=== PATIENT | female | born 1955 | race American Indian/Alaskan Native ===

== ENCOUNTER 2017-01-08 16:11 | Emergency (ER) | payer MEDICAID ==
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
--- NOTE | 2017-01-08 16:54 | Cat Scan Report ---
FINAL REPORT PROCEDURE: CT HEAD/BRAIN WO CON TECHNIQUE: Computerized tomography of the head was performed without contrast material. HISTORY: neuro deficits \T\lt; 6hrs or sx present upon awakening COMPARISON: 06/02/2014 FINDINGS: Skull and scalp: Normal. Paranasal sinuses: Normal. Ventricles and subarachnoid spaces: Normal. Cerebrum: No evidence of hemorrhage, acute infarction or mass . Cerebellum and brainstem: No evidence of hemorrhage, acute infarction or mass. Vasculature: No hyperdense MCA sign. Comments: Moderate diffuse atrophy with mild periventricular microischemic change and central lacunar infarct disease.. Overall similar to prior study IMPRESSION: No definite evidence of acute intracranial pathology. If symptoms and or concern persists recommend MRI.
--- NOTE | 2017-01-08 16:59 | Cat Scan Report ---
FINAL REPORT PROCEDURE: CT CERVICAL SPINE WO CON TECHNIQUE: Computerized tomography of the cervical spine was performed from the skull base to T1 without contrast material. HISTORY: headache, injury COMPARISON: 05/15/14 FINDINGS: No acute fracture. No soft tissue swelling. Skull base appears intact. Multilevel facet arthropathy neuroforaminal narrowing Moderate degenerative changes of the mid to lower cervical spine primarily at the levels of C4-5 6 and 7. Narrowing of the posterior disc space at C6-7 C7-T1. IMPRESSION: No acute cervical spine fracture No significant change prior study
[2017-01-08 18:14] LABS: Hematocrit 41.1 % (30.3-42.9); Hemoglobin 13.7 gm/dl (10.1-14.3); Mean Corpuscular HGB Conc 33 % (30-34); Mean Corpuscular Hemoglobin 31 pg (28-32); Mean Corpuscular Volume 93 fl (79-97); Platelet Count 270 K/mm3 (140-440); Red Blood Count 4.44 M/mm3 (3.65-5.03); Red Cell Distribution Width 15.5 % (13.2-15.2); White Blood Count 8.6 K/mm3 (4.5-11.0)
[2017-01-08 18:17] LABS: Anion Gap 20 mmol/L; BUN/Creatinine Ratio 23.75; Blood Urea Nitrogen 19 mg/dL (7-17); Calcium 9.5 mg/dL (8.4-10.2); Carbon Dioxide 23 mmol/L (22-30); Chloride 99.6 mmol/L (98-107); Creatine Kinase 227 units/L (30-135); Glucose 85 mg/dL (65-100); Sodium 139 mmol/L (137-145)
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
[2017-01-08 18:33] LABS: Bilirubin,Urine NEG (Negative); Blood,Urine NEG (Negative); Ketones,Urine NEG (Negative); Leukocyte Esterase,Urine MOD (Negative); Nitrite,Urine NEG (Negative); Protein,Urine <15 mg/dL mg/dL (Negative); Urobilinogen,Urine < 2.0 mg/dL (<2.0)
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
[2017-01-08 19:08] LABS: RBC,Urine < 1.0 /HPF (0.0-6.0)
[2017-01-08 19:09] LABS: Bacteria,Urine 2+ /HPF (Negative)
--- NOTE | 2017-01-08 21:07 | Cat Scan Report ---
FINAL REPORT EXAM: CT CHEST WO CON HISTORY: pain after fall COMPARISON: Chest x-ray from January 08, 2017. TECHNIQUE: Contiguous axial images were obtained. Additional sagittal and coronal reformatted images were obtained. FINDINGS: Mild cardiac enlargement. Thoracic aorta normal in caliber. Mild calcification aortic arch. No pathologically enlarged intrathoracic or axillary lymph nodes. No pneumothorax or pneumomediastinum. There is a focal linear density at the lateral margin right upper lobe measuring 2.8 x 1.1 centimeters. This is indeterminate. This could reflect area of scarring or atelectasis. There remote adjacent right-sided rib fractures. Active infection or contusive injury cannot be entirely excluded. Remote fractures involving the right 4th, 5th, 6th, and 7th ribs. No definite acute fractures identified of the bilateral ribs. Thoracic vertebral body heights are grossly preserved. Sternum is intact. 7 millimeter nonobstructive right renal calculus. Nonspecific linear densities mid to lower lungs likely reflecting combination of scarring and atelectasis. No dense airspace consolidation or pleural effusion. Tracheobronchial tree remains patent. IMPRESSION: Small rounded opacity at the lateral margin right upper lobe which may reflect area of scarring or atelectasis. There remote adjacent right-sided rib fractures. Acute contusive injury or infection less likely. Mild linear scarring or atelectasis mid to lower lungs. No gross acute intrathoracic injury otherwise. 7 millimeter nonobstructive right renal calculus.
[2017-01-08] MEDS ORDERED: MOTRIN PO PRN (21:13)
[2017-01-08] MEDS ORDERED: ZOFRAN ODT PO PRN (21:13)
[2017-01-08] MEDS ORDERED: COZAAR PO SCH (21:15)
[2017-01-08] MEDS ORDERED: LASIX PO SCH (22:00)
[2017-01-08] MEDS ORDERED: MOTRIN PO SCH (22:00)
[2017-01-08] MEDS ORDERED: OSCAL PO SCH (22:00)
[2017-01-08] MEDS ORDERED: ELAVIL PO SCH (22:00)
[2017-01-08] MEDS ORDERED: K-DUR PO SCH (22:00)
[2017-01-09 02:41] VITALS: BP 109/66
--- NOTE | 2017-01-09 09:32 | Emergency Department Report ---
Blank Doc - Documentation Documentation: Case management has evaluated the patient. Transport is being arranged. Patient will be discharged home at this time.
== END 2017-01-09 10:25 | disposition home or self-care (01) ==
LOC: ED 16:11
DX: R51 Headache (principal); I10 Essential (primary) hypertension; M19.90 Unspecified osteoarthritis, unspecified site; Z86.73 Personal history of transient ischemic attack (TIA), and cerebral infarction without residual deficits; E11.9 Type 2 diabetes mellitus without complications; Y04.0XXA Assault by unarmed brawl or fight, initial encounter; Y93.89 Activity, other specified; Y92.89 Other specified places as the place of occurrence of the external cause; Y99.8 Other external cause status
CPT/HCPCS: 36415; 51701; 70450; 71010; 71250; 72125; 72170; 80048; 81001; 82550; 82962; 83880; 85027; 93005; 93010

== ENCOUNTER 2017-03-28 11:59 | Inpatient (IN) | payer MEDICAID ==
[2017-03-28] MEDS ORDERED: ATIVAN IV ONE (12:08)
[2017-03-28] MEDS ORDERED: ATIVAN ONE (12:09)
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
[2017-03-28] MEDS ORDERED: LASIX IV ONE (12:23)
--- NOTE | 2017-03-28 12:26 | XRay Report ---
Single view chest: History: Shortness of breath. Findings: Cardiomegaly. Trachea is midline. Airspace opacities bilaterally with mild pulmonary venous congestion. Normal CP angles. Impression: Probably bilateral pneumonia or pulmonary edema
[2017-03-28 13:01] LABS: Alanine Aminotransferase 9 units/L (7-56); Albumin 3.9 g/dL (3.9-5); Alkaline Phosphatase 67 units/L (35-129); Anion Gap 19 mmol/L; BUN/Creatinine Ratio 27; Blood Urea Nitrogen 16 mg/dL (7-17); Calcium 9.1 mg/dL (8.4-10.2); Carbon Dioxide 19 mmol/L (22-30); Chloride 104.5 mmol/L (98-107); Creatine Kinase 406 units/L (30-135); Glucose 102 mg/dL (65-100); Potassium 4.3 mmol/L (3.6-5.0); Sodium 138 mmol/L (137-145); Total Protein 7.9 g/dL (6.3-8.2)
[2017-03-28 13:27] LABS: Basophils % (Auto) 0.1 % (0.0-1.8); Eosinophils % (Auto) 0.7 % (0.0-4.3); Hematocrit 32.5 % (30.3-42.9); Mean Corpuscular HGB Conc 34 % (30-34); Mean Corpuscular Hemoglobin 32 pg (28-32); Mean Corpuscular Volume 94 fl (79-97); Platelet Count 233 K/mm3 (140-440); Red Blood Count 3.46 M/mm3 (3.65-5.03); Red Cell Distribution Width 15.1 % (13.2-15.2); White Blood Count 7.5 K/mm3 (4.5-11.0)
[2017-03-28 13:42] LABS: INR 1.04 (0.87-1.13)
[2017-03-28 13:43] LABS: Partial Thromboplastin Time 29.5 Sec. (24.2-36.6)
--- NOTE | 2017-03-28 13:55 | History and Physical Report ---
History of Present Illness Chief complaint: I keep getting short of breath History of present illness: 61 YO Female with HTN, DM, OA, CVA with RHP presents to ED for evaluation. Pt states that she has experienced shortness of breath and pain in her chest over the past 12 hours with persistent symptoms. Pt states that the pain is 5/10, worse with deep breathing, nonradiating, not worsened with exertion or relieved with rest, not associated with meals or diaphoresis. Pt is unable to speak in complete sentences. Pt denies fever, chills, palpitations, NVD, syncope, productive cough, prolonged travel/immobility, individual/family history of DVT/ PE, recent ill contacts, skin rash, BRBPR, or trauma. Past History Past Medical History: arthritis, diabetes, hypertension, stroke Past Surgical History: No surgical history, Other (reviewed) Social history: . denies: smoking, alcohol abuse, prescription drug abuse, IV drug use Family history: CAD, hypertension Medications and Allergies Allergies Allergy/AdvReac Type Severity Reaction Status Date / Time No Known Allergies Allergy Unverified 05/15/14 11:44 Home Medications Medication Instructions Recorded Confirmed Last Taken Type Amitriptyline [Elavil] 75 mg PO QHS 01/08/17 03/28/17 Unknown History Calcium Carbonate [Oyster Shell 500 mg PO QDAY 01/08/17 03/28/17 Unknown History Calcium] Furosemide [Lasix TAB] 40 mg PO QDAY 01/08/17 03/28/17 Unknown History Ibuprofen [Motrin] 400 mg PO Q8H 01/08/17 03/28/17 Unknown History Losartan [Cozaar] 100 mg PO QDAY 01/08/17 03/28/17 Unknown History Potassium Chloride [K-Dur] 10 meq PO QDAY 01/08/17 03/28/17 Unknown History Review of Systems Constitutional: no weight loss, no weight gain, no fever, no chills, no sweats Ears, nose, mouth and throat: no ear pain, no tinnitis, no decreased hearing, no nose pain, no nasal congestion, no nasal discharge, no sinus pressure Breasts: no change in shape, no swelling, no mass Cardiovascular: chest pain, shortness of breath, no orthopnea, no palpitations, no rapid/irregular heart beat, no edema, no syncope Respiratory: shortness of breath, no cough, no cough with sputum, no excessive sputum, no hemoptysis, no dyspnea on exertion Gastrointestinal: no abdominal pain, no nausea, no vomiting, no diarrhea, no constipation, no change in bowel habits, no hematemesis Genitourinary Female: no pelvic pain, no flank pain, no menorrhagia, no dysuria , no urinary frequency Rectal: no pain, no incontinence, no bleeding Musculoskeletal: no neck stiffness, no neck pain, no shooting arm pain, no arm numbness/tingling, no low back pain, no shooting leg pain, no leg numbness/ tingling, no redness of joints Integumentary: no rash, no pruritis, no redness, no sores, no wounds, no jaundice, no boils Neurological: no transient paralysis, no paralysis, no weakness, no parathesias , no numbness, no tingling, no seizures, no syncope Psychiatric: no anxiety, no memory loss, no change in sleep habits, no sleep disturbances, no insomnia, no hypersomnia, no change in appetite, no change in libido, no suicidal ideation Endocrine: no cold intolerance, no heat intolerance, no polyphagia, no excessive thirst, no polydipsia, no polyuria, no nocturia, no excessive sweating Hematologic/Lymphatic: no easy bruising, no easy bleeding Allergic/Immunologic: no urticaria, no allergic rhinitis, no wheezing Exam - Constitutional General appearance: Present: mild distress - EENT Eyes: Present: PERRL ENT: hearing intact, clear oral mucosa - Neck Neck: Present: supple, normal ROM - Respiratory Respiratory effort: labored Respiratory: bilateral: diminished, rhonchi - Cardiovascular Rhythm: other (tachycardia) Heart Sounds: Present: S1 & S2. Absent: rub, click - Extremities Extremities: pulses symmetrical, No edema Extremity abnormal: edema Peripheral Pulses: within normal limits - Abdominal General gastrointestinal: Present: soft, non-tender, non-distended, normal bowel sounds Female genitourinary: Present: normal - Integumentary Integumentary: Present: clear, warm, dry - Musculoskeletal Musculoskeletal: generalized weakness - Psychiatric Psychiatric: appropriate mood/affect, intact judgment & insight - Neurologic Neurologic: CNII-XII intact, moves all extremities, no gait normal Results - Labs CBC & Chem 7: 03/28/17 12:48 03/28/17 Unknown Labs: Abnormal lab results 03/28/17 03/28/17 Range/Units 12:48 Unknown RBC 3.46 L (3.65-5.03) M/mm3 Lymph % (Auto) 12.5 L (13.4-35.0) % Lymph # 0.9 L (1.2-5.4) K/mm3 Seg Neutrophils % 82.0 H (40.0-70.0) % Carbon Dioxide 19 L (22-30) mmol/L Creatinine 0.6 L (0.7-1.2) mg/dL Glucose 102 H (65-100) mg/dL Total Creatine Kinase 406 H (30-135) units/L CK-MB (CK-2) 8.0 H (0.0-4.0) ng/mL NT-Pro-B Natriuret Pep 1629 H (0-900) pg/mL Assessment and Plan - Patient Problems (1) CHF (congestive heart failure) Current Visit: Yes Status: Suspected Qualifiers: Congestive heart failure type: systolic Congestive heart failure chronicity : acute Qualified Code(s): I50.21 - Acute systolic (congestive) heart failure Plan to address problem: Serial cardiac enzymes, echo, telemetry, cardiology consulted,d dimer, afterload reduction, monitor uop q shift, daily weight, (2) Acute respiratory failure with hypoxemia Current Visit: Yes Status: Acute Plan to address problem: supplemental oxygen, nebs, aspiration precautions, NIPPV, pulmonary toilet (3) HTN (hypertension) Current Visit: Yes Status: Acute Qualifiers: Hypertension type: H Plan to address problem: monitor bp q shift, (4) Diabetes Current Visit: Yes Status: Acute Qualifiers: Diabetes mellitus type: D Diabetes mellitus complication status: D Diabetes mellitus complication detail: D Diabetic retinopathy severity: D Proliferative retinopathy type: P Diabetes mellitus macular edema: D Diabetes mellitus correction insulin use: D Laterality: L Chronic kidney disease stage: C Plan to address problem: ADA diet, insulin accu check (5) ACS (acute coronary syndrome) Current Visit: Yes Status: Acute Plan to address problem: Serial cardiac enzymes, ekg, echo, stress test, cardiology consulted, (6) DVT prophylaxis Current Visit: Yes Status: Acute
[2017-03-28] MEDS ORDERED: SODIUM CHLORIDE FLUSH SYRINGE 10 ML IV PRN (14:16)
[2017-03-28] MEDS ORDERED: ZOFRAN IV PRN (14:30)
[2017-03-28] MEDS ORDERED: TYLENOL PO PRN (14:30)
[2017-03-28] MEDS ORDERED: PROVENTIL IH PRN (16:00)
[2017-03-28] MEDS ORDERED: LOVENOX SUB-Q SCH (16:53)
[2017-03-28] MEDS: LASIX IV SCH (19:07)
--- NOTE | 2017-03-28 20:38 | Cat Scan Report ---
FINAL REPORT EXAM: CT ANGIO CHEST HISTORY: chest pain TECHNIQUE: Serial axial images through the chest during intravenous administration of 100 milliliters Omni 350 contrast with coronal, sagittal and oblique reconstruction PRIORS: CT scan of the chest from 01/08/2017 FINDINGS: Areas of consolidation are seen in the upper lobes, bilaterally. This is seen to a lesser extent in the right middle lobe and right lower lobe. There is atelectasis in the dependent portion of the lung bases. There are small bilateral pleural effusions. The heart measures approximately 14.1 centimeters in length. No mediastinal adenopathy is identified. No abnormal filling defects are identified in the pulmonary arteries. There is narrowing of the AP diameter of trachea and mainstem bronchi, bilaterally. No gross abnormality is seen in the visualized portion of the abdomen. No acute osseous abnormality is identified. There are degenerative changes in the spine. IMPRESSION: 1. No definite acute pulmonary embolism is identified. 2. Areas of increased airspace opacity are seen in the lungs, bilaterally. This has developed since the prior examination. This is a nonspecific finding. It may be secondary to infection. Possibility of atypical pneumonia is not excluded. Differential diagnosis would include cryptogenic organizing pneumonia. 3. Cardiomegaly. 4. There is narrowing of the AP diameter of the trachea and mainstem bronchi. This may indicate tracheobronchomalacia. Pulmonology consultation is recommended. 5. Bilateral pleural effusion. UNF
[2017-03-28] MEDS: PEPCID PO SCH (21:46)
[2017-03-28] MEDS: LOVENOX SUB-Q SCH (21:46)
--- NOTE | 2017-03-28 23:35 | Event Note ---
Date: 03/28/17 CT reviewed Start IV antibiotic for pneumonia, consult pulmonary for tracheomalacia
[2017-03-29] MEDS: ROCEPHIN/NS 1 GM/50 ML 1 GM/50 ML BAG IV SCH ×2 (01:35→21:19)
[2017-03-29] MEDS: ZITHROMAX 500 MG in NACL 0.9% 250ML 250 ML IV SCH ×2 (01:41→21:27)
[2017-03-29] MEDS: LASIX IV SCH ×2 (06:00→17:17)
[2017-03-29] MEDS ORDERED: NON-FORMULARY (Losartan [Cozaar] 100 MG) PO SCH (10:00)
[2017-03-29] MEDS: LOVENOX SUB-Q SCH ×2 (10:30→21:33)
[2017-03-29] MEDS: PEPCID PO SCH ×2 (10:30→21:31)
[2017-03-29] MEDS: OSCAL PO SCH (10:30)
[2017-03-29] MEDS: COZAAR PO SCH (10:36)
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
--- NOTE | 2017-03-29 14:48 | Progress Note ---
Assessment and Plan Assessment and plan: 61-year-old -[place] female with past medical history significant for hypertension, CVA with residual right extremity weakness, diabetes mellitus presented yesterday complaining of left-sided chest pain and difficulty of breathing Acute hypoxic respiratory failure, bilateral pneumonia - Patient is on breathing treatment, Solu-Medrol, nebulizer - CTA showed tracheobronchomalacia, no PE and pulmonary consult is placed - on IV antibiotic Acute combined systolic and diastolic heart failure - Echo showed ejection fraction of 15-20% with diastolic dysfunction - Patient is on IV Lasix, losartan cardiology consult placed, will add beta blockers on discharge History of CVA with residual right-sided weakness - Patient said it was due to hemorrhagic stroke Hypertension - Resume home medications DVT prophylaxis -Lovenox Disposition - Continue inpatient care History Interval history: Patient was seen and evaluated this morning, she was breathing comfortably. Patient denied any chest pain after admission. Hospitalist Physical - Physical exam Narrative exam: Not in cardiopulmonary distress. The patient appeared well nourished and normally developed. Vital signs as documented. Head exam is unremarkable. No scleral icterus . Neck is without jugular venous distension, thyromegaly, or carotid bruits. Lungs are clear to auscultation. Cardiac exam reveals regular rate and Rhythm. First and second heart sounds normal. No murmurs, rubs or gallops. Abdominal exam reveals normal bowel sounds, no masses, no organomegaly and no aortic enlargement. Extremities are nonedematous and both femoral and pedal pulses are normal. 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 Right upper and lower extremities weakness (chronic ). - Constitutional Vitals: Temp Pulse Resp BP Pulse Ox 98.0 F 96 H 20 110/71 97 03/29/17 13:16 03/29/17 13:16 03/29/17 13:16 03/29/17 13:16 03/29/17 13:16 General appearance: Present: no acute distress Results - Labs CBC & Chem 7: 03/28/17 12:48 03/28/17 Unknown Labs: Laboratory Last Values WBC 7.5 K/mm3 (4.5-11.0) 03/28/17 12:48 RBC 3.46 M/mm3 (3.65-5.03) L 03/28/17 12:48 Hgb 11.0 gm/dl (10.1-14.3) 03/28/17 12:48 Hct 32.5 % (30.3-42.9) 03/28/17 12:48 MCV 94 fl (79-97) 03/28/17 12:48 MCH 32 pg (28-32) 03/28/17 12:48 MCHC 34 % (30-34) 03/28/17 12:48 RDW 15.1 % (13.2-15.2) 03/28/17 12:48 Plt Count 233 K/mm3 (140-440) 03/28/17 12:48 Lymph % (Auto) 12.5 % (13.4-35.0) L 03/28/17 12:48 [place] % (Auto) 4.7 % (0.0-7.3) 03/28/17 12:48 Eos % (Auto) 0.7 % (0.0-4.3) 03/28/17 12:48 Baso % (Auto) 0.1 % (0.0-1.8) 03/28/17 12:48 Lymph # 0.9 K/mm3 (1.2-5.4) L 03/28/17 12:48 [place] # 0.4 K/mm3 (0.0-0.8) 03/28/17 12:48 Eos # 0.1 K/mm3 (0.0-0.4) 03/28/17 12:48 Baso # 0.0 K/mm3 (0.0-0.1) 03/28/17 12:48 Seg Neutrophils % 82.0 % (40.0-70.0) H 03/28/17 12:48 Seg Neutrophils # 6.1 K/mm3 (1.8-7.7) 03/28/17 12:48 PT 14.1 Sec. (12.2-14.9) 03/28/17 12:48 INR 1.04 (0.87-1.13) 03/28/17 12:48 APTT 29.5 Sec. (24.2-36.6) 03/28/17 12:48 D-Dimer 633 ng/mlDDU (0-234) H 03/28/17 12:28 Sodium 138 mmol/L (137-145) 03/28/17 Unknown Potassium 4.3 mmol/L (3.6-5.0) 03/28/17 Unknown Chloride 104.5 mmol/L (98-107) 03/28/17 Unknown Carbon Dioxide 19 mmol/L (22-30) L 03/28/17 Unknown Anion Gap 19 mmol/L 03/28/17 Unknown BUN 16 mg/dL (7-17) 03/28/17 Unknown Creatinine 0.6 mg/dL (0.7-1.2) L 03/28/17 Unknown Estimated GFR > 60 ml/min 03/28/17 Unknown BUN/Creatinine Ratio 27 % 03/28/17 Unknown Glucose 102 mg/dL (65-100) H 03/28/17 Unknown Hemoglobin A1c 5.7 % (4-6) 03/28/17 12:48 Calcium 9.1 mg/dL (8.4-10.2) 03/28/17 Unknown Total Bilirubin 0.30 mg/dL (0.1-1.2) 03/28/17 Unknown AST 17 units/L (5-40) 03/28/17 Unknown ALT 9 units/L (7-56) 03/28/17 Unknown Alkaline Phosphatase 67 units/L (35-129) 03/28/17 Unknown Total Creatine Kinase 406 units/L (30-135) H 03/28/17 Unknown CK-MB (CK-2) 8.0 ng/mL (0.0-4.0) H 03/28/17 Unknown CK-MB (CK-2) Rel Index 1.9 (0-4) 03/28/17 Unknown Troponin T < 0.010 ng/mL (0.00-0.029) 03/28/17 Unknown NT-Pro-B Natriuret Pep 1629 pg/mL (0-900) H 03/28/17 Unknown Total Protein 7.9 g/dL (6.3-8.2) 03/28/17 Unknown Albumin 3.9 g/dL (3.9-5) 03/28/17 Unknown Albumin/Globulin Ratio 1.0 % 03/28/17 Unknown - Imaging and Cardiology Imaging and Cardiology: Echo ejection fraction 15-20%, diastolic dysfunction, with wall motion abnormality
[2017-03-29] MEDS: ALDACTONE PO SCH (17:50)
--- NOTE | 2017-03-29 19:33 | Event Note ---
Date: 03/29/[address] CHRISTINE THANK YOU FOR ASKING US TO PARTICIPATE IN THE CARE OF THIS PATIENT. FULL CONSULTATION FOLLOW. THIS IS 61 YEAR OLD FEMALE WITH HISTORY OF HYPERTENSION,DIABETES,OSTEOARTHRITIS AND CVA ADMITTED WITH A COMPLAINT OF SHORTNESS OF BREATH AND CHEST PAIN.PATIENTS CHEST PAIN GETS WORSE WITH INSPIRATION. PATIENT DENIES FEVER AND CHILLS.PATIENT HAS HISTORY OF SMOKING 3/4 TH PACK FOR 20 YEARSBUT STOPPED SMOKING 13 YEARS AGO. PATIENT DENIES HISTORY OF ALCOHOL OR DRUG ABUSE. 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 PATIENT HAS ANGIO CT OF CHEST REPORTED NO DEFINITE PULMONARY EMBOLI.REPORTED AIRSPACE DISEASE. CHEST XRAY REPORTED CHF VS PULMONARY EDEMA. IMMPRESSION: 1. SHORTNESS OF BREATH 2. CHEST PAIN 3. BILATERAL PULMONARY INFILTRATES. 4. CHF 5. HYPERTENSION 6. DIABETES. 7. H/O CVA. 8. OSTEOARTHRITIS. PLAN; 1. ABGS ON ROOM AIR 2. O2 2 LITRES VIA NASAL CANULA 3. ALBUTEROL/ATROVENT AEROSOL TREATMENTS Q 6 HOURS. 4. CONTINUE ANTIBIOTICS CEFTRIOXONE AND ZITHROMAX. 5. CONTINUE S/C LOVENOX. 6. CONTINUE FAMOTADINE.
[2017-03-29] MEDS: ELAVIL PO SCH (21:31)
[2017-03-29] MEDS: COREG PO SCH (21:32)
[2017-03-30] MEDS: LASIX IV SCH ×2 (05:06→18:09)
[2017-03-30 06:02] LABS: Basophils % (Auto) 0.8 % (0.0-1.8); Eosinophils % (Auto) 4.6 % (0.0-4.3); Hemoglobin 11.8 gm/dl (10.1-14.3); Mean Corpuscular HGB Conc 34 % (30-34); Mean Corpuscular Hemoglobin 31 pg (28-32); Mean Corpuscular Volume 93 fl (79-97); Platelet Count 248 K/mm3 (140-440); Red Blood Count 3.77 M/mm3 (3.65-5.03); Red Cell Distribution Width 15.1 % (13.2-15.2); White Blood Count 6.1 K/mm3 (4.5-11.0)
[2017-03-30 06:32] LABS: Anion Gap 18 mmol/L; BUN/Creatinine Ratio 29; Blood Urea Nitrogen 23 mg/dL (7-17); Calcium 9.1 mg/dL (8.4-10.2); Carbon Dioxide 25 mmol/L (22-30); Chloride 102.3 mmol/L (98-107); Glucose 101 mg/dL (65-100); Potassium 4.4 mmol/L (3.6-5.0); Sodium 141 mmol/L (137-145)
--- NOTE | 2017-03-30 09:07 | Progress Note ---
Assessment and Plan Acute systolic heart failure echo shows a severe dilated cardiomyopathy, ejection fraction 15-20%. Old CVA Hypertension LBBB Subjective Date of service: 03/30/17 Interval history: Patient reports her breathing has improved. No events on telemetry overnight. Objective Vital Signs Temp Pulse Pulse Resp BP Pulse Ox 03/30/17 08:00 95 H 03/30/17 07:38 97.9 F 96 H 22 118/84 96 03/30/17 04:05 97.7 F 96 H 20 119/85 95 03/29/17 23:39 97.8 F 22 128/83 03/29/17 23:34 97.5 F L 100 H 19 105/72 97 03/29/17 23:00 100 H 03/29/17 21:32 99 H 96/60 03/29/17 19:09 98.8 F 99 H 18 96/60 95 03/29/17 17:59 97.5 F L 98 H 20 111/77 95 03/29/17 13:16 98.0 F 96 H 20 110/71 97 03/29/17 11:10 107 H 20 03/29/17 10:00 97 - Physical Examination General: No Apparent Distress HEENT: Positive: PERRL Neck: Positive: trachea midline Cardiac: Positive: Reg Rate and Rhythm - Labs and Meds CBC 03/30/17 Range/Units 04:37 WBC 6.1 (4.5-11.0) K/mm3 RBC 3.77 (3.65-5.03) M/mm3 Hgb 11.8 (10.1-14.3) gm/dl Hct 35.0 (30.3-42.9) % Plt Count 248 (140-440) K/mm3 Lymph # 1.5 (1.2-5.4) K/mm3 [place] # 0.5 (0.0-0.8) K/mm3 Eos # 0.3 (0.0-0.4) K/mm3 Baso # 0.0 (0.0-0.1) K/mm3 Comprehensive Metabolic Panel 03/30/17 Range/Units 04:37 Sodium 141 (137-145) mmol/L Potassium 4.4 (3.6-5.0) mmol/L Chloride 102.3 (98-107) mmol/L Carbon Dioxide 25 (22-30) mmol/L BUN 23 H (7-17) mg/dL Creatinine 0.8 (0.7-1.2) mg/dL Glucose 101 H (65-100) mg/dL Calcium 9.1 (8.4-10.2) mg/dL
[2017-03-30] MEDS: ALDACTONE PO SCH (09:33)
[2017-03-30] MEDS: COREG PO SCH ×2 (09:34→21:14)
[2017-03-30] MEDS: COZAAR PO SCH (09:34)
[2017-03-30] MEDS: PEPCID PO SCH ×2 (09:34→21:14)
[2017-03-30] MEDS: OSCAL PO SCH (09:34)
--- NOTE | 2017-03-30 11:01 | Progress Note ---
Assessment and Plan Acute systolic heart failure New onset severe dilated cardiomyopathy, ejection fraction 15-20%. Old CVA Hypertension LBBB Morbid obesity Continue guideline mediated therapy including Coreg, ARB and spiranolactone Continue IV diuresis, good response so far. Neck 6 L negative so for Stress test tomorrow to evaluate new-onset cardiomyopathy Subjective Date of service: 03/30/17 Principal diagnosis: congestive heart failure Interval history: No events overnight Objective Vital Signs Temp Pulse Pulse Resp BP Pulse Ox 03/30/17 09:34 96 H 118/84 03/30/17 09:33 96 H 118/84 03/30/17 08:00 95 H 03/30/17 07:38 97.9 F 96 H 22 118/84 96 03/30/17 04:05 97.7 F 96 H 20 119/85 95 03/29/17 23:39 97.8 F 22 128/83 03/29/17 23:34 97.5 F L 100 H 19 105/72 97 03/29/17 23:00 100 H 03/29/17 21:32 99 H 96/60 03/29/17 19:09 98.8 F 99 H 18 96/60 95 03/29/17 17:59 97.5 F L 98 H 20 111/77 95 03/29/17 13:16 98.0 F 96 H 20 110/71 97 03/29/17 11:10 107 H 20 - Physical Examination Narrative exam: GEN: NAD , moderate to severely obese HEENT: Carotids 2+ NECK: SUPPLE, CVS: RRR, NORMAL S1S2 LUNGS/CHEST: CTA ABD: SOFT, MSK: FROM X 4 EXTREMITIES Extremities 2+ edema NEURO: CN 2-12 GROSSLY INTACT, NO FOCAL DEFICITS PSY: CALM General: No Apparent Distress HEENT: Positive: PERRL Neck: Positive: trachea midline - Labs and Meds CBC 03/30/17 Range/Units 04:37 WBC 6.1 (4.5-11.0) K/mm3 RBC 3.77 (3.65-5.03) M/mm3 Hgb 11.8 (10.1-14.3) gm/dl Hct 35.0 (30.3-42.9) % Plt Count 248 (140-440) K/mm3 Lymph # 1.5 (1.2-5.4) K/mm3 [place] # 0.5 (0.0-0.8) K/mm3 Eos # 0.3 (0.0-0.4) K/mm3 Baso # 0.0 (0.0-0.1) K/mm3 Comprehensive Metabolic Panel 03/30/17 Range/Units 04:37 Sodium 141 (137-145) mmol/L Potassium 4.4 (3.6-5.0) mmol/L Chloride 102.3 (98-107) mmol/L Carbon Dioxide 25 (22-30) mmol/L BUN 23 H (7-17) mg/dL Creatinine 0.8 (0.7-1.2) mg/dL Glucose 101 H (65-100) mg/dL Calcium 9.1 (8.4-10.2) mg/dL
[2017-03-30 12:08] LABS: ISTAT Base Excess 5; ISTAT DEVICE 0; ISTAT HCO3 28.8; ISTAT PCO2 41.6 (35-45); ISTAT PH 7.448 (7.35-7.45); ISTAT PO2 79 (80-105); ISTAT SO2 96; ISTAT TCO2 30
--- NOTE | 2017-03-30 14:20 | Progress Note ---
Assessment and Plan Assessment and plan: 61-year-old -[place] female with past medical history significant for hypertension, CVA with residual right extremity weakness, diabetes mellitus presented yesterday complaining of left-sided chest pain and difficulty of breathing Acute hypoxic respiratory failure, bilateral pneumonia - Patient is on breathing treatment, Solu-Medrol, nebulizer - CTA showed tracheobronchomalacia, no PE - Pulmonary consult appreciated - on IV antibiotic Acute combined systolic and diastolic heart failure - Echo showed ejection fraction of 15-20% with diastolic dysfunction - Patient is on IV Lasix, losartan, beta lacy and spironolactone - Cardiology consult appreciated - Patient will have stress test tomorrow History of CVA with residual right-sided weakness - Patient said it was due to hemorrhagic stroke Hypertension - Resume home medications DVT prophylaxis -Lovenox Disposition - Continue inpatient care and will be discharged after the stress test. History Interval history: Patient was seen and evaluated this morning, she was breathing comfortably. Patient denied any chest pain after admission. Hospitalist Physical - Physical exam Narrative exam: Not in cardiopulmonary distress. The patient appeared well nourished and normally developed. Vital signs as documented. Head exam is unremarkable. No scleral icterus . Neck is without jugular venous distension, thyromegaly, or carotid bruits. Lungs are clear to auscultation. Cardiac exam reveals regular rate and Rhythm. First and second heart sounds normal. No murmurs, rubs or gallops. Abdominal exam reveals normal bowel sounds, no masses, no organomegaly and no aortic enlargement. Extremities are nonedematous and both femoral and pedal pulses are normal. 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 Right upper and lower extremities weakness (chronic ). - Constitutional Vitals: Temp Pulse Resp BP Pulse Ox 97.9 F 96 H 22 118/84 97 03/30/17 07:38 03/30/17 09:34 03/30/17 07:38 03/30/17 09:34 03/30/17 10:00 General appearance: Present: no acute distress Results - Labs CBC & Chem 7: 03/30/17 04:37 03/30/17 04:37 Labs: Laboratory Last Values WBC 6.1 K/mm3 (4.5-11.0) 03/30/17 04:37 RBC 3.77 M/mm3 (3.65-5.03) 03/30/17 04:37 Hgb 11.8 gm/dl (10.1-14.3) 03/30/17 04:37 Hct 35.0 % (30.3-42.9) 03/30/17 04:37 MCV 93 fl (79-97) 03/30/17 04:37 MCH 31 pg (28-32) 03/30/17 04:37 MCHC 34 % (30-34) 03/30/17 04:37 RDW 15.1 % (13.2-15.2) 03/30/17 04:37 Plt Count 248 K/mm3 (140-440) 03/30/17 04:37 Lymph % (Auto) 24.6 % (13.4-35.0) 03/30/17 04:37 [place] % (Auto) 8.5 % (0.0-7.3) H 03/30/17 04:37 Eos % (Auto) 4.6 % (0.0-4.3) H 03/30/17 04:37 Baso % (Auto) 0.8 % (0.0-1.8) 03/30/17 04:37 Lymph # 1.5 K/mm3 (1.2-5.4) 03/30/17 04:37 [place] # 0.5 K/mm3 (0.0-0.8) 03/30/17 04:37 Eos # 0.3 K/mm3 (0.0-0.4) 03/30/17 04:37 Baso # 0.0 K/mm3 (0.0-0.1) 03/30/17 04:37 Seg Neutrophils % 61.5 % (40.0-70.0) 03/30/17 04:37 Seg Neutrophils # 3.7 K/mm3 (1.8-7.7) 03/30/17 04:37 PT 14.1 Sec. (12.2-14.9) 03/28/17 12:48 INR 1.04 (0.87-1.13) 03/28/17 12:48 APTT 29.5 Sec. (24.2-36.6) 03/28/17 12:48 D-Dimer 633 ng/mlDDU (0-234) H 03/28/17 12:28 POC ABG pH 7.448 (7.35-7.45) 03/30/17 12:07 POC ABG pCO2 41.6 (35-45) 03/30/17 12:07 POC ABG pO2 79 (80-105) L 03/30/17 12:07 POC ABG HCO3 28.8 03/30/17 12:07 POC ABG Total CO2 30 03/30/17 12:07 POC ABG O2 Sat 96 03/30/17 12:07 POC ABG Base Excess 5 03/30/17 12:07 FiO2 21 % 03/30/17 12:07 Sodium 141 mmol/L (137-145) 03/30/17 04:37 Potassium 4.4 mmol/L (3.6-5.0) 03/30/17 04:37 Chloride 102.3 mmol/L (98-107) 03/30/17 04:37 Carbon Dioxide 25 mmol/L (22-30) 03/30/17 04:37 Anion Gap 18 mmol/L 03/30/17 04:37 BUN 23 mg/dL (7-17) H 03/30/17 04:37 Creatinine 0.8 mg/dL (0.7-1.2) 03/30/17 04:37 Estimated GFR > 60 ml/min 03/30/17 04:37 BUN/Creatinine Ratio 29 % 03/30/17 04:37 Glucose 101 mg/dL (65-100) H 03/30/17 04:37 Hemoglobin A1c 5.7 % (4-6) 03/28/17 12:48 Calcium 9.1 mg/dL (8.4-10.2) 03/30/17 04:37 Total Bilirubin 0.30 mg/dL (0.1-1.2) 03/28/17 Unknown AST 17 units/L (5-40) 03/28/17 Unknown ALT 9 units/L (7-56) 03/28/17 Unknown Alkaline Phosphatase 67 units/L (35-129) 03/28/17 Unknown Total Creatine Kinase 406 units/L (30-135) H 03/28/17 Unknown CK-MB (CK-2) 8.0 ng/mL (0.0-4.0) H 03/28/17 Unknown CK-MB (CK-2) Rel Index 1.9 (0-4) 03/28/17 Unknown Troponin T < 0.010 ng/mL (0.00-0.029) 03/28/17 Unknown NT-Pro-B Natriuret Pep 1629 pg/mL (0-900) H 03/28/17 Unknown Total Protein 7.9 g/dL (6.3-8.2) 03/28/17 Unknown Albumin 3.9 g/dL (3.9-5) 03/28/17 Unknown Albumin/Globulin Ratio 1.0 % 03/28/17 Unknown
[2017-03-30] MEDS: ZITHROMAX 500 MG in NACL 0.9% 250ML 250 ML IV SCH (21:13)
[2017-03-30] MEDS: ROCEPHIN/NS 1 GM/50 ML 1 GM/50 ML BAG IV SCH (21:13)
[2017-03-30] MEDS: LOVENOX SUB-Q SCH (21:14)
[2017-03-30] MEDS: ELAVIL PO SCH (21:14)
--- NOTE | 2017-03-30 21:54 | Progress Note ---
Assessment and Plan Patient sleeping at this time. No acute respiratory distress.Patient is on room air. O2 saturation 97%. - Patient Problems (1) Acute respiratory failure with hypoxemia Current Visit: Yes Status: Acute Plan to address problem: Improved. Patient presently on room air. O2 saturation 97%. (2) HTN (hypertension) Current Visit: Yes Status: Acute Qualifiers: Hypertension type: H Plan to address problem: Management as per primary care. (3) Pulmonary edema Current Visit: Yes Status: Acute Qualifiers: Chronicity: C Plan to address problem: Appears improved. Repeat chest xray (4) Shortness of breath Current Visit: Yes Status: Acute Plan to address problem: Albuterol aerosol treatments q 6 hours. (5) ACS (acute coronary syndrome) Current Visit: Yes Status: Acute Plan to address problem: Management as per cardiology. 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 (8) Bilateral pulmonary infiltrates on chest x-ray Current Visit: Yes Status: Acute Plan to address problem: Patient is on ceftrioxone and Azhitromycin. Subjective Date of service: 03/30/17 Principal diagnosis: congestive heart failure Interval history: Patient sleeping at this time. No acute respiratory distress.Patient is on room air. O2 saturation 97%. Objective Vital Signs - 12hr 03/30/17 03/30/17 03/30/17 10:00 16:00 17:45 Temperature 97.8 F Pulse Rate 99 H 96 H Blood Pressure Blood Pressure 102/60 [Left] O2 Sat by Pulse 97 Oximetry 03/30/17 21:14 Temperature Pulse Rate 103 H Blood Pressure 103/59 Blood Pressure [Left] O2 Sat by Pulse Oximetry Constitutional: no acute distress, asleep Eyes: non-icteric ENT: oropharynx moist Neck: supple, no lymphadenopathy Ascultation: Bilateral: diminished breath sounds Cardiovascular: regular rate and rhythm Gastrointestinal: normoactive bowel sounds, soft, non-tender Integumentary: normal Extremities: no cyanosis, no edema Neurologic: other (Patient sleeping at this time.) Psychiatric: other (Patient sleeping at this time.) CBC and BMP: 03/30/17 04:37 03/30/17 04:37 ABG, PT/INR, D-dimer: ABG POC ABG pH 7.448 (7.35-7.45) 03/30/17 12:07 POC ABG pCO2 41.6 (35-45) 03/30/17 12:07 POC ABG pO2 79 (80-105) L 03/30/17 12:07 POC ABG HCO3 28.8 03/30/17 12:07 POC ABG Total CO2 30 03/30/17 12:07 POC ABG O2 Sat 96 03/30/17 12:07 PT/INR, D-dimer PT 14.1 Sec. (12.2-14.9) 03/28/17 12:48 INR 1.04 (0.87-1.13) 03/28/17 12:48 D-Dimer 633 ng/mlDDU (0-234) H 03/28/17 12:28 Abnormal lab findings: Abnormal Labs 03/28/17 03/30/17 03/30/17 Unknown 04:37 04:37 [place] % (Auto) 8.5 H Eos % (Auto) 4.6 H POC ABG pO2 Carbon Dioxide 19 L BUN 23 H Creatinine 0.6 L Glucose 102 H 101 H Total Creatine Kinase 406 H CK-MB (CK-2) 8.0 H NT-Pro-B Natriuret Pep 1629 H 03/30/17 12:07 [place] % (Auto) Eos % (Auto) POC ABG pO2 79 L Carbon Dioxide BUN Creatinine Glucose Total Creatine Kinase CK-MB (CK-2) NT-Pro-B Natriuret Pep
[2017-03-31] MEDS: LASIX IV SCH ×2 (05:58→17:36)
[2017-03-31 06:01] LABS: Anion Gap 19 mmol/L; BUN/Creatinine Ratio 34; Blood Urea Nitrogen 27 mg/dL (7-17); Carbon Dioxide 24 mmol/L (22-30); Chloride 103.5 mmol/L (98-107); Glucose 100 mg/dL (65-100); Potassium 4.3 mmol/L (3.6-5.0); Sodium 142 mmol/L (137-145)
[2017-03-31] MEDS ORDERED: LEXISCAN IV ONE ×2 (10:04→10:23)
--- NOTE | 2017-03-31 10:37 | Progress Note ---
Assessment and Plan Assessment and plan: 61-year-old -[place] female with past medical history significant for hypertension, CVA with residual right extremity weakness, diabetes mellitus presented yesterday complaining of left-sided chest pain and difficulty of breathing Acute hypoxic respiratory failure, bilateral pneumonia - Patient is on breathing treatment, Solu-Medrol, nebulizer - CTA showed tracheobronchomalacia, no PE - Pulmonary consult appreciated - on IV antibiotic Acute combined systolic and diastolic heart failure - Echo showed ejection fraction of 15-20% with diastolic dysfunction - Patient is on IV Lasix, losartan, beta lacy and spironolactone - Cardiology consult appreciated - Patient will have stress test this morning History of CVA with residual right-sided weakness - Patient said it was due to hemorrhagic stroke Hypertension - Resume home medications DVT prophylaxis -Lovenox Disposition - Continue inpatient care and will be discharged after the stress test. Today/ tomorrow. History Interval history: Patient was seen and evaluated this morning, she was breathing comfortably. Patient denied any chest pain after admission. Hospitalist Physical - Physical exam Narrative exam: Not in cardiopulmonary distress. The patient appeared well nourished and normally developed. Vital signs as documented. Head exam is unremarkable. No scleral icterus . Neck is without jugular venous distension, thyromegaly, or carotid bruits. Lungs are clear to auscultation. Cardiac exam reveals regular rate and Rhythm. First and second heart sounds normal. No murmurs, rubs or gallops. Abdominal exam reveals normal bowel sounds, no masses, no organomegaly and no aortic enlargement. Extremities are nonedematous and both femoral and pedal pulses are normal. 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 Right upper and lower extremities weakness (chronic ). - Constitutional Vitals: Temp Pulse Resp BP Pulse Ox 98.9 F 101 H 16 114/74 94 03/31/17 08:03 03/31/17 08:03 03/31/17 08:03 03/31/17 08:03 03/31/17 08:03 General appearance: Present: no acute distress Results - Labs CBC & Chem 7: 03/30/17 04:37 03/31/17 04:28 Labs: Laboratory Last Values WBC 6.1 K/mm3 (4.5-11.0) 03/30/17 04:37 RBC 3.77 M/mm3 (3.65-5.03) 03/30/17 04:37 Hgb 11.8 gm/dl (10.1-14.3) 03/30/17 04:37 Hct 35.0 % (30.3-42.9) 03/30/17 04:37 MCV 93 fl (79-97) 03/30/17 04:37 MCH 31 pg (28-32) 03/30/17 04:37 MCHC 34 % (30-34) 03/30/17 04:37 RDW 15.1 % (13.2-15.2) 03/30/17 04:37 Plt Count 248 K/mm3 (140-440) 03/30/17 04:37 Lymph % (Auto) 24.6 % (13.4-35.0) 03/30/17 04:37 [place] % (Auto) 8.5 % (0.0-7.3) H 03/30/17 04:37 Eos % (Auto) 4.6 % (0.0-4.3) H 03/30/17 04:37 Baso % (Auto) 0.8 % (0.0-1.8) 03/30/17 04:37 Lymph # 1.5 K/mm3 (1.2-5.4) 03/30/17 04:37 [place] # 0.5 K/mm3 (0.0-0.8) 03/30/17 04:37 Eos # 0.3 K/mm3 (0.0-0.4) 03/30/17 04:37 Baso # 0.0 K/mm3 (0.0-0.1) 03/30/17 04:37 Seg Neutrophils % 61.5 % (40.0-70.0) 03/30/17 04:37 Seg Neutrophils # 3.7 K/mm3 (1.8-7.7) 03/30/17 04:37 PT 14.1 Sec. (12.2-14.9) 03/28/17 12:48 INR 1.04 (0.87-1.13) 03/28/17 12:48 APTT 29.5 Sec. (24.2-36.6) 03/28/17 12:48 D-Dimer 633 ng/mlDDU (0-234) H 03/28/17 12:28 POC ABG pH 7.448 (7.35-7.45) 03/30/17 12:07 POC ABG pCO2 41.6 (35-45) 03/30/17 12:07 POC ABG pO2 79 (80-105) L 03/30/17 12:07 POC ABG HCO3 28.8 03/30/17 12:07 POC ABG Total CO2 30 03/30/17 12:07 POC ABG O2 Sat 96 03/30/17 12:07 POC ABG Base Excess 5 03/30/17 12:07 FiO2 21 % 03/30/17 12:07 Sodium 142 mmol/L (137-145) 03/31/17 04:28 Potassium 4.3 mmol/L (3.6-5.0) 03/31/17 04:28 Chloride 103.5 mmol/L (98-107) 03/31/17 04:28 Carbon Dioxide 24 mmol/L (22-30) 03/31/17 04:28 Anion Gap 19 mmol/L 03/31/17 04:28 BUN 27 mg/dL (7-17) H 03/31/17 04:28 Creatinine 0.8 mg/dL (0.7-1.2) 03/31/17 04:28 Estimated GFR > 60 ml/min 03/31/17 04:28 BUN/Creatinine Ratio 34 % 03/31/17 04:28 Glucose 100 mg/dL (65-100) 03/31/17 04:28 Hemoglobin A1c 5.7 % (4-6) 03/28/17 12:48 Calcium 9.0 mg/dL (8.4-10.2) 03/31/17 04:28 Total Bilirubin 0.30 mg/dL (0.1-1.2) 03/28/17 Unknown AST 17 units/L (5-40) 03/28/17 Unknown ALT 9 units/L (7-56) 03/28/17 Unknown Alkaline Phosphatase 67 units/L (35-129) 03/28/17 Unknown Total Creatine Kinase 406 units/L (30-135) H 03/28/17 Unknown CK-MB (CK-2) 8.0 ng/mL (0.0-4.0) H 03/28/17 Unknown CK-MB (CK-2) Rel Index 1.9 (0-4) 03/28/17 Unknown Troponin T < 0.010 ng/mL (0.00-0.029) 03/28/17 Unknown NT-Pro-B Natriuret Pep 1629 pg/mL (0-900) H 03/28/17 Unknown Total Protein 7.9 g/dL (6.3-8.2) 03/28/17 Unknown Albumin 3.9 g/dL (3.9-5) 03/28/17 Unknown Albumin/Globulin Ratio 1.0 % 03/28/17 Unknown
[2017-03-31] MEDS: COREG PO SCH ×2 (12:03→21:19)
[2017-03-31] MEDS: PEPCID PO SCH ×2 (12:04→21:19)
[2017-03-31] MEDS: COZAAR PO SCH (12:04)
[2017-03-31] MEDS: OSCAL PO SCH (12:04)
[2017-03-31] MEDS: ALDACTONE PO SCH (12:04)
--- NOTE | 2017-03-31 13:25 | Progress Note ---
Subjective Date of service: 03/31/17 Principal diagnosis: congestive heart failure Interval history: Acute hypoxic respiratory failure-much improved Acute systolic heart failure New onset severe dilated cardiomyopathy, ejection fraction 15-20%. Old CVA Hypertension LBBB Morbid obesity Objective Vital Signs - 12hr 03/31/17 03/31/17 03/31/17 04:48 07:52 08:03 Temperature 97.8 F 98.9 F Pulse Rate 105 H 99 H 101 H Respiratory 20 16 Rate Blood Pressure 117/82 Blood Pressure 114/74 [Left] O2 Sat by Pulse 92 94 Oximetry 03/31/17 03/31/17 03/31/17 09:54 10:21 10:22 Temperature Pulse Rate 96 H 104 H 108 H Respiratory Rate Blood Pressure 111/76 114/76 114/76 Blood Pressure [Left] O2 Sat by Pulse Oximetry 03/31/17 03/31/17 03/31/17 10:23 10:24 12:02 Temperature 98.3 F Pulse Rate 106 H 106 H 97 H Respiratory 16 Rate Blood Pressure 117/77 109/77 116/87 Blood Pressure [Left] O2 Sat by Pulse 97 Oximetry 03/31/17 12:54 Temperature Pulse Rate 106 H Respiratory Rate Blood Pressure 107/75 Blood Pressure [Left] O2 Sat by Pulse Oximetry Constitutional: no acute distress, asleep Eyes: non-icteric ENT: oropharynx moist Neck: supple, no lymphadenopathy Ascultation: Bilateral: diminished breath sounds Cardiovascular: regular rate and rhythm Gastrointestinal: normoactive bowel sounds, soft, non-tender Integumentary: normal Extremities: no cyanosis, no edema Neurologic: other (Patient sleeping at this time.) Psychiatric: other (Patient sleeping at this time.) CBC and BMP: 03/30/17 04:37 03/31/17 04:28 ABG, PT/INR, D-dimer: ABG POC ABG pH 7.448 (7.35-7.45) 03/30/17 12:07 POC ABG pCO2 41.6 (35-45) 03/30/17 12:07 POC ABG pO2 79 (80-105) L 03/30/17 12:07 POC ABG HCO3 28.8 03/30/17 12:07 POC ABG Total CO2 30 03/30/17 12:07 POC ABG O2 Sat 96 03/30/17 12:07 PT/INR, D-dimer PT 14.1 Sec. (12.2-14.9) 03/28/17 12:48 INR 1.04 (0.87-1.13) 03/28/17 12:48 D-Dimer 633 ng/mlDDU (0-234) H 03/28/17 12:28 Abnormal lab findings: Abnormal Labs 03/28/17 03/30/17 03/30/17 Unknown 04:37 04:37 [place] % (Auto) 8.5 H Eos % (Auto) 4.6 H POC ABG pO2 Carbon Dioxide 19 L BUN 23 H Creatinine 0.6 L Glucose 102 H 101 H Total Creatine Kinase 406 H CK-MB (CK-2) 8.0 H NT-Pro-B Natriuret Pep 1629 H 03/30/17 03/31/17 12:07 04:28 [place] % (Auto) Eos % (Auto) POC ABG pO2 79 L Carbon Dioxide BUN 27 H Creatinine Glucose Total Creatine Kinase CK-MB (CK-2) NT-Pro-B Natriuret Pep
--- NOTE | 2017-03-31 17:36 | Event Note ---
Date: 03/31/17 Patient's thallium stress test demonstrated a severe dilated cardiomyopathy, severe left ventricular systolic dysfunction. The perfusion scan revealed no significant ischemic or infarct defects, suggesting an underlying nonischemic cardiomyopathy. We'll continue medical therapy for heart failure and aggressive risk factor modification.
--- NOTE | 2017-03-31 18:48 | Treadmill Report ---
THALIUM STRESS TEST LEFT VENTRICLE: Left ventricle is severely dilated. Perfusion study demonstrates a small fixed basal inferior defect worse on the resting scan. No significant reversible defects identified. Gated analysis demonstrates severe left ventricular systolic dysfunction with ejection fraction 21%. CONCLUSION: Abnormal perfusion study, demonstrating severe dilated cardiomyopathy with severe left ventricular systolic dysfunction. The perfusion images revealed no significant reversible defects, suggesting a possible non-ischemic cardiomyopathy. Clinical correlation is recommended. [facility]# [id number] [place]/NTS
[2017-03-31] MEDS: ROCEPHIN/NS 1 GM/50 ML 1 GM/50 ML BAG IV SCH (21:18)
[2017-03-31] MEDS: LOVENOX SUB-Q SCH (21:19)
[2017-03-31] MEDS: ELAVIL PO SCH ×2 (21:19→21:30)
[2017-03-31] MEDS ORDERED: ZITHROMAX PO SCH (22:00)
[2017-04-01] MEDS: LASIX IV SCH (05:04)
[2017-04-01 05:51] LABS: Anion Gap 20 mmol/L; BUN/Creatinine Ratio 31; Blood Urea Nitrogen 28 mg/dL (7-17); Calcium 9.8 mg/dL (8.4-10.2); Carbon Dioxide 26 mmol/L (22-30); Chloride 100.5 mmol/L (98-107); Glucose 107 mg/dL (65-100); Potassium 4.3 mmol/L (3.6-5.0); Sodium 142 mmol/L (137-145)
[2017-04-01 07:49] VITALS: BP 104/70
[2017-04-01] MEDS: COZAAR PO SCH (09:24)
[2017-04-01] MEDS: COREG PO SCH ×2 (09:24→09:28)
[2017-04-01] MEDS: PEPCID PO SCH (09:24)
[2017-04-01] MEDS: OSCAL PO SCH (09:24)
[2017-04-01] MEDS: ALDACTONE PO SCH (09:25)
--- NOTE | 2017-04-01 09:27 | Progress Note ---
Subjective Date of service: 04/01/17 Principal diagnosis: congestive heart failure Interval history: Patient is being seen today for: Seen and examined at bedside; 24hour events reviewed; nursing and respiratory care staff consulted; no adverse overnight events reported to me; Objective Vital Signs - 12hr 03/31/17 04/01/17 04/01/17 23:52 03:43 04:00 Temperature 97.8 F 97.9 F Pulse Rate 97 H 103 H 100 H Respiratory 20 22 Rate Blood Pressure 101/72 125/86 O2 Sat by Pulse 96 92 Oximetry 04/01/17 04/01/17 04/01/17 07:45 09:24 09:25 Temperature 98.3 F Pulse Rate 95 H 95 H 95 H Respiratory 20 Rate Blood Pressure 104/70 104/70 104/70 O2 Sat by Pulse 95 Oximetry Constitutional: no acute distress, asleep Eyes: non-icteric ENT: oropharynx moist Neck: supple, no lymphadenopathy Ascultation: Bilateral: diminished breath sounds Cardiovascular: regular rate and rhythm Gastrointestinal: normoactive bowel sounds, soft, non-tender Integumentary: normal Extremities: no cyanosis, no edema Neurologic: other (Patient sleeping at this time.) Psychiatric: other (Patient sleeping at this time.) CBC and BMP: 03/30/17 04:37 04/01/17 04:32 ABG, PT/INR, D-dimer: ABG POC ABG pH 7.448 (7.35-7.45) 03/30/17 12:07 POC ABG pCO2 41.6 (35-45) 03/30/17 12:07 POC ABG pO2 79 (80-105) L 03/30/17 12:07 POC ABG HCO3 28.8 03/30/17 12:07 POC ABG Total CO2 30 03/30/17 12:07 POC ABG O2 Sat 96 03/30/17 12:07 PT/INR, D-dimer PT 14.1 Sec. (12.2-14.9) 03/28/17 12:48 INR 1.04 (0.87-1.13) 03/28/17 12:48 D-Dimer 633 ng/mlDDU (0-234) H 03/28/17 12:28 Abnormal lab findings: Abnormal Labs 03/28/17 03/30/17 03/30/17 Unknown 04:37 04:37 [place] % (Auto) 8.5 H Eos % (Auto) 4.6 H POC ABG pO2 Carbon Dioxide 19 L BUN 23 H Creatinine 0.6 L Glucose 102 H 101 H Total Creatine Kinase 406 H CK-MB (CK-2) 8.0 H NT-Pro-B Natriuret Pep 1629 H 03/30/17 03/31/17 04/01/17 12:07 04:28 04:32 [place] % (Auto) Eos % (Auto) POC ABG pO2 79 L Carbon Dioxide BUN 27 H 28 H Creatinine Glucose 107 H Total Creatine Kinase CK-MB (CK-2) NT-Pro-B Natriuret Pep
--- NOTE | 2017-04-01 10:19 | Progress Note ---
Assessment and Plan Acute systolic heart failure Severe Dilated Cardiomyopathy, new onset echo shows a severe dilated cardiomyopathy, ejection fraction 15-20%. MPI revealed no significant ischemic or infarct defects, suggesting an underlying nonischemic cardiomyopathy. Old CVA Hypertension LBBB Recommend: Continue current medical therapy for her dilated cardiomyopathy. 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 Once discharged, follow up with [facility] as scheduled . Subjective Date of service: 04/01/17 Principal diagnosis: congestive heart failure Interval history: Patient is resting in bed comfortably. Reports her breathing is better. Objective Vital Signs Temp Pulse Resp BP Pulse Ox 04/01/17 09:25 95 H 104/70 04/01/17 09:24 95 H 104/70 04/01/17 07:45 98.3 F 95 H 20 104/70 95 04/01/17 04:00 100 H 04/01/17 03:43 97.9 F 103 H 22 125/86 92 03/31/17 23:52 97.8 F 97 H 20 101/72 96 03/31/17 19:06 98.3 F 100 H 20 94/63 93 03/31/17 16:14 98.2 F 98 H 18 101/67 97 03/31/17 12:54 106 H 107/75 03/31/17 12:02 98.3 F 97 H 16 116/87 97 03/31/17 10:24 106 H 109/77 03/31/17 10:23 106 H 117/77 03/31/17 10:22 108 H 114/76 03/31/17 10:21 104 H 114/76 - Physical Examination General: No Apparent Distress HEENT: Positive: PERRL Neck: Positive: trachea midline Cardiac: Positive: Reg Rate and Rhythm Extremities: Absent: edema - Labs and Meds Comprehensive Metabolic Panel 04/01/17 Range/Units 04:32 Sodium 142 (137-145) mmol/L Potassium 4.3 (3.6-5.0) mmol/L Chloride 100.5 (98-107) mmol/L Carbon Dioxide 26 (22-30) mmol/L BUN 28 H (7-17) mg/dL Creatinine 0.9 (0.7-1.2) mg/dL Glucose 107 H (65-100) mg/dL Calcium 9.8 (8.4-10.2) mg/dL
--- NOTE | 2017-04-01 15:23 | Discharge Summary ---
Providers - Providers Date of Admission: 03/28/17 14:16 Attending physician: SANDRA BAZAN MD 03/28/17 16:49 Consult to Cardiology [CONS] Routine Consulting Provider: DIANE CONDE Reason For Exam: acs 03/28/17 23:34 Consult to Physician [CONS] Routine Consulting Provider: LAKEISHA ALVAREZ Reason For Exam: tracheomalacia Notified:: clerk secretary pl call 03/29/17 08:00 Physical Therapy Evaluation and Treat [CONS] Routine Comment: Reason For Exam: right sided weakness Primary care physician: CLINICAL CYTOGENETICIST SCIENTIST Hospitalization Condition: Serious Hospital course: 61-year-old -[place]ish female with past medical history significant for hypertension, CVA with residual right extremity weakness, diabetes mellitus presented yesterday complaining of left-sided chest pain and difficulty of breathing Acute hypoxic respiratory failure, bilateral pneumonia - Patient is on breathing treatment, Solu-Medrol, nebulizer - CTA showed tracheobronchomalacia, no PE - Pulmonary consult appreciated - on IV antibiotic Acute combined systolic and diastolic heart failure - Echo showed ejection fraction of 15-20% with diastolic dysfunction - Patient is on IV Lasix, losartan, beta lacy and spironolactone - Cardiology consult appreciated - Patient will have stress test this morning History of CVA with residual right-sided weakness - Patient said it was due to hemorrhagic stroke Hypertension - Resume home medications DVT prophylaxis -Lovenox Disposition - Continue inpatient care and will be discharged after the stress test. Today/ tomorrow. Disposition: DC-01 TO HOME OR SELFCARE Time spent for discharge: 33 minutes Exam - Constitutional Vitals: Temp Pulse Resp BP Pulse Ox 98.3 F 95 H 20 104/70 95 04/01/17 07:45 04/01/17 09:25 04/01/17 07:45 04/01/17 09:25 04/01/17 07:45 Plan Follow up with: PRIMARY CAREMD [Primary Care Provider] - 7 Days Prescriptions: Amitriptyline [Elavil] 75 mg PO QHS 30 Days Calcium Carbonate [Oyster Shell Calcium] 500 mg PO QDAY #30 tablet Carvedilol [Coreg] 6.25 mg PO BID #60 tablet Furosemide [Lasix TAB] 40 mg PO QDAY #30 tablet Losartan [Cozaar] 100 mg PO QDAY #30 tablet Spironolactone [Aldactone] 25 mg PO QDAY #30 tablet
== END 2017-04-01 18:52 | disposition home or self-care (01) | DRG 291 ==
LOC: ED 11:59 → 4A 14:16
PROVIDERS: ADMIT Internal Medicine; ATTEND Internal Medicine
PROC: 5A09357 Assistance with Respiratory Ventilation, Less than 24 Consecutive Hours, Continuous Positive Airway Pressure (ICD-10-PCS; 2017-03-28)
PROC: 4A033R1 Measurement of Arterial Saturation, Peripheral, Percutaneous Approach (ICD-10-PCS; principal; 2017-03-30)
DX: I11.0 Hypertensive heart disease with heart failure (principal); J96.01 Acute respiratory failure with hypoxia; J18.9 Pneumonia, unspecified organism; I24.9 Acute ischemic heart disease, unspecified; I44.7 Left bundle-branch block, unspecified; I50.41 Acute combined systolic (congestive) and diastolic (congestive) heart failure; I42.0 Dilated cardiomyopathy; E66.01 Morbid (severe) obesity due to excess calories; E11.9 Type 2 diabetes mellitus without complications; M19.90 Unspecified osteoarthritis, unspecified site; Z86.73 Personal history of transient ischemic attack (TIA), and cerebral infarction without residual deficits; Z82.49 Family history of ischemic heart disease and other diseases of the circulatory system; Z68.29 Body mass index [BMI] 29.0-29.9, adult
CPT/HCPCS: 36415; 36600; 71010; 71275; 78452; 80048; 80053; 82550; 82553; 82803; 83036; 83880; 84484; 85025; 85379; 85610; 85730; 87040; 93005; 93010; 93017; 93306; 94760; 96374; 96375; A9502; G8978-GP; G8980-GP; J0456; J0696; J1650; J1940; J2060; J2785; J7050; Q9967

== ENCOUNTER 2017-06-13 11:05 | Emergency (ER) | payer MEDICAID ==
[2017-06-13 12:18] VITALS: BP 125/82
[2017-06-13] MEDS ORDERED: TORADOL IM ONE (12:40)
--- NOTE | 2017-06-13 12:46 | Emergency Department Report ---
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 PT FELL BEFORE GETTING TO THE BATHROOM ONTO HER RIGHT SIDE AND NOW C/O RIGHT SIDED HEADACHE,SHOULDER, ARM,FOREARM,HIP,FEMUR PAIN AND TENDERNESS. PT DID NOT USE HER CANE TO TRY TO GET TO THE BATHROOM BECAUSE SHE DID NOT WANT TO URINATE ON HERSELF SO SHE WENT WITHOUT THE CANE. Complaint: fall -: Sudden (WHILE TRYING TO GO TO THE BATHROOM) Fall From: standing Place Fall Occurred: other ([facility]) Loss of Consciousness: none Prolonged Down Time?: unclear Symptoms Prior to Fall: none Location: head, pelvis, other (RIGHT SHOULDER, RIGHT ELBOW,RT HIP,RT FEMUR) Location - Extremities: Right: Shoulder, Arm, Elbow, Forearm, Thigh Severity: moderate Severity scale (0 -10): 8 Quality: aching Context: tripped/slipped (NO USING CANE, RIGHT SIDED CVA AND WEAKNESS) Associated Symptoms: headache, other (RIGHT SIDED PAIN) - Related Data Previous Rx's Medication Instructions Recorded Last Taken Type Amitriptyline [Elavil] 75 mg PO QHS 30 Days tablet 04/01/17 Unknown Rx Calcium Carbonate [Oyster Shell 500 mg PO QDAY #30 tablet 04/01/17 Unknown Rx Calcium] Carvedilol [Coreg] 6.25 mg PO BID #60 tablet 04/01/17 Unknown Rx Furosemide [Lasix TAB] 40 mg PO QDAY #30 tablet 04/01/17 Unknown Rx Losartan [Cozaar] 100 mg PO QDAY #30 tablet 04/01/17 Unknown Rx Spironolactone [Aldactone] 25 mg PO QDAY #30 tablet 04/01/17 Unknown Rx Naproxen 500 mg PO BID #6 tablet 06/13/17 Unknown Rx Allergies Allergy/AdvReac Type Severity Reaction Status Date / Time No Known Allergies Allergy Unverified 05/15/14 11:44 ED Review of Systems ROS: Stated complaint: RIGHT ARM PAIN/FALL Other details as noted in HPI Constitutional: denies: chills, fever Eyes: denies: eye pain, eye discharge, vision change ENT: denies: ear pain, throat pain Respiratory: denies: cough, shortness of breath, wheezing Cardiovascular: denies: chest pain, palpitations Endocrine: no symptoms reported Gastrointestinal: denies: abdominal pain, nausea, diarrhea Genitourinary: denies: urgency, dysuria, discharge Musculoskeletal: arthralgia. denies: back pain, joint swelling Skin: denies: rash, lesions Neurological: abnormal gait (SECONDARY TO RIGHT SIDED CVA AND RESIDUAL WEAKNESS) . denies: headache, weakness, paresthesias Psychiatric: denies: anxiety, depression Hematological/Lymphatic: denies: easy bleeding, easy bruising ED Past Medical Hx - Past Medical History Previous Medical History?: Yes Hx Hypertension: Yes Hx CVA: Yes (RIGHT SIDED WEAKNESS) Hx Congestive Heart Failure: No Hx Diabetes: Yes Hx Arthritis: Yes Hx Asthma: No Hx COPD: Yes Additional medical history: USES A CANE - Surgical History Past Surgical History?: Yes Additional Surgical History: [facility]--1978; "throat surgery" - Family History Family history: hypertension - Social History Smoking Status: Never Smoker Substance Use Type: None - Medications Home Medications: Home Medications Medication Instructions Recorded Confirmed Last Taken Type Amitriptyline [Elavil] 75 mg PO QHS 30 Days tablet 04/01/17 Unknown Rx Calcium Carbonate [Oyster Shell 500 mg PO QDAY #30 tablet 04/01/17 Unknown Rx Calcium] Carvedilol [Coreg] 6.25 mg PO BID #60 tablet 04/01/17 Unknown Rx Furosemide [Lasix TAB] 40 mg PO QDAY #30 tablet 04/01/17 Unknown Rx Losartan [Cozaar] 100 mg PO QDAY #30 tablet 04/01/17 Unknown Rx Spironolactone [Aldactone] 25 mg PO QDAY #30 tablet 04/01/17 Unknown Rx Naproxen 500 mg PO BID #6 tablet 06/13/17 Unknown Rx ED Physical Exam - General Limitations: No Limitations General appearance: alert, in no apparent distress - Head Head exam: Present: atraumatic, normocephalic - Eye Eye exam: Present: normal appearance - ENT ENT exam: Present: mucous membranes moist - Neck Neck exam: Present: normal inspection - Respiratory Respiratory exam: Present: normal lung sounds bilaterally. Absent: respiratory distress, wheezes, rales - Cardiovascular Cardiovascular Exam: Present: regular rate, normal rhythm. Absent: systolic murmur, diastolic murmur, rubs, gallop - GI/Abdominal GI/Abdominal exam: Present: soft, normal bowel sounds, other (CENTRIPITAL FAT). Absent: distended, tenderness - Rectal Rectal exam: Present: deferred - Extremities Exam Extremities exam: Present: normal inspection, tenderness - Expanded Upper Extremity Exam Right Shoulder Exam: Present: tenderness (IN GLENOHUMERAL JOINT, HUMERUS,ELBOW). Absent: abrasion, laceration, ecchymosis Upper Arm exam: Present: normal inspection, tenderness (HUMERUS) Elbow exam: Present: full ROM, tenderness - Expanded Lower Extremity Exam Right Hip exam: Present: normal inspection, tenderness (RIGHT TENDERNESS). Absent: swelling Upper Leg exam: Present: normal inspection, tenderness Lower Leg exam: Present: normal inspection, full ROM Ankle exam: Present: normal inspection, full ROM. Absent: swelling Foot/Toe exam: Absent: swelling - Back Exam Back exam: Present: normal inspection - Neurological Exam Neurological exam: Present: alert, oriented X3 - Psychiatric Psychiatric exam: Present: normal affect, normal mood - Skin Skin exam: Present: warm, dry, intact, normal color. Absent: rash ED Course Vital Signs 06/13/17 06/13/17 11:10 12:17 Temperature 98.6 F 97.6 F Pulse Rate 82 81 Respiratory 16 18 Rate Blood Pressure 110/75 Blood Pressure 125/82 [Left] O2 Sat by Pulse 96 98 Oximetry ED Medical Decision Making - Radiology Data Radiology results: report reviewed (XRAY RIGHT SHOULDER,RIGHT HUMERUS,HIP,: NEGATIVE FX, HIP OA CT HEAD:OLD LACUNAR INFARCTION, ,ICROCVASCULAR ISCHEMIC CHANGES), image reviewed Critical care attestation.: If time is entered above; I have spent that time in minutes in the direct care of this critically ill patient, excluding procedure time. ED Disposition Clinical Impression: Closed head injury Qualifiers: Encounter type: initial encounter Qualified Code(s): S09.90XA - Unspecified injury of head, initial encounter Shoulder contusion Qualifiers: Encounter type: initial encounter Laterality: right Qualified Code(s): S40.011A - Contusion of right shoulder, initial encounter Contusion, hip Qualifiers: Encounter type: initial encounter Laterality: right Qualified Code(s): S70.01XA - Contusion of right hip, initial encounter Disposition: TO HOME OR SELFCARE Is pt being admited?: No Does the pt Need Aspirin: No Condition: Stable Instructions: Minor Head Injury (ED), Osteoarthritis (ED), Shoulder Sprain (ED) , Arthralgia (ED) Prescriptions: Naproxen 500 mg PO BID #6 tablet Referrals: GALINDO MASTERS MD [Primary Care Provider] - 3-5 Days Time of Disposition: 15:42
--- NOTE | 2017-06-13 14:27 | Cat Scan Report ---
FINAL REPORT PROCEDURE: CT HEAD/BRAIN WO CON TECHNIQUE: Computerized tomography of the head was performed without contrast material. HISTORY: RIGHT TEMPORAL,FRONTAL SCALP TRAUMA FROM FALL COMPARISON: Noncontrast head CT 01/08/2017 FINDINGS: Brain volume is age appropriate. Again seen is mild deep white matter microvascular ischemic change and central lacunar infarct disease. There is no intra or extra-axial hemorrhage. There is no CT evident acute infarction. There is no mass effect or shift of midline structures. The skull base and calvarium are intact. The partially visualized paranasal sinuses, mastoid air cells and middle ears are clear. IMPRESSION: No hemorrhage. Old lacunar infarcts. If desired most sensitive exclusion of subtle acute bland ischemia may be made with MRI with diffusion. Mild deep white matter microvascular ischemic change.
--- NOTE | 2017-06-13 14:38 | XRay Report ---
RIGHT HIP, 2 views: History: Pain, fall The bony architecture is intact without evidence of fracture or dislocation. Mild osteoarthritic changes are noted. Metallic fragments are noted in the soft tissues superior to the right hip, correlate with history. IMPRESSION: Mild osteoarthritis. No acute injury identified.
--- NOTE | 2017-06-13 14:38 | XRay Report ---
RIGHT HUMERUS: History: Fall, pain. AP and lateral views of the humerus demonstrate normal mineralization and contours for this patient's age. No destructive changes are noted and the adjacent soft tissues are normal. IMPRESSION: Normal right humerus.
--- NOTE | 2017-06-13 14:38 | XRay Report ---
RIGHT FEMUR: HISTORY: pain. AP and lateral views of the femur demonstrate normal mineralization and contours for this patient's age. No destructive changes are noted and the adjacent soft tissues are normal. IMPRESSION: Normal right femur.
--- NOTE | 2017-06-13 14:39 | XRay Report ---
RIGHT SHOULDER, 3 VIEWS: HISTORY: right shoulder pain. Normal bone mineralization. No acute osseous injury or joint pathology is detected. The soft tissues are unremarkable. IMPRESSION: Right shoulder within normal limits.
== END 2017-06-13 17:32 | disposition home or self-care (01) ==
LOC: ED 11:05
DX: S40.011A Contusion of right shoulder, initial encounter (principal); S70.01XA Contusion of right hip, initial encounter; S09.90XA Unspecified injury of head, initial encounter; I10 Essential (primary) hypertension; E11.9 Type 2 diabetes mellitus without complications; M19.90 Unspecified osteoarthritis, unspecified site; J44.9 Chronic obstructive pulmonary disease, unspecified; Z86.73 Personal history of transient ischemic attack (TIA), and cerebral infarction without residual deficits; W01.0XXA Fall on same level from slipping, tripping and stumbling without subsequent striking against object, initial encounter; Y93.89 Activity, other specified; Y92.89 Other specified places as the place of occurrence of the external cause; Y99.8 Other external cause status
CPT/HCPCS: 70450; 73030; 73060; 73502; 73552; 96372; 99284; J1885

== ENCOUNTER 2017-07-07 18:37 | Emergency (ER) | payer MEDICAID ==
[2017-07-07] MEDS ORDERED: ASPIRIN PO ONE (21:33)
[2017-07-07 21:57] LABS: Basophils % (Auto) 0.4 % (0.0-1.8); Eosinophils # (Auto) 0.1 K/mm3 (0.0-0.4); Eosinophils % (Auto) 1.3 % (0.0-4.3); Hematocrit 37.4 % (30.3-42.9); Hemoglobin 12.1 gm/dl (10.1-14.3); Lymphocytes # (Auto) 1.7 K/mm3 (1.2-5.4); Lymphocytes % (Auto) 27.5 % (13.4-35.0); Mean Corpuscular HGB Conc 32 % (30-34); Mean Corpuscular Hemoglobin 32 pg (28-32); Mean Corpuscular Volume 97 fl (79-97); Monocytes # (Auto) 0.4 K/mm3 (0.0-0.8); Monocytes % (Auto) 5.9 % (0.0-7.3); Platelet Count 248 K/mm3 (140-440); Red Blood Count 3.84 M/mm3 (3.65-5.03); Red Cell Distribution Width 16.4 % (13.2-15.2)
[2017-07-07 22:12] LABS: BUN/Creatinine Ratio 18; Blood Urea Nitrogen 18 mg/dL (7-17); Calcium 9.5 mg/dL (8.4-10.2); Hemolysis Index 1
--- NOTE | 2017-07-07 22:55 | XRay Report ---
FINAL REPORT EXAM: XR CHEST ROUTINE 2V HISTORY: Shortness of breath TECHNIQUE: Chest two views PRIORS: Comparison is January 08, 2017 FINDINGS: There is focal linear opacity within the right midlung unchanged from prior exam consistent with areas of chronic scarring. The cardiac silhouette is mildly enlarged. No focal pleural effusion identified. No confluent pulmonary infiltrates are identified. Pulmonary vasculature is unremarkable. While 20 or IMPRESSION: Areas of chronic parenchymal scarring within right middle and lower lobe distributions Mild cardiomegaly
[2017-07-08 10:16] LABS: Bilirubin,Urine NEG (Negative); Blood,Urine NEG (Negative); Color,Urine Yellow (Yellow); Mucus,Urine FEW /HPF; Nitrite,Urine NEG (Negative); Protein,Urine <15 mg/dL mg/dL (Negative); Urobilinogen,Urine < 2.0 mg/dL (<2.0)
--- NOTE | 2017-07-08 11:53 | Emergency Department Report ---
ED Shortness of Breath HPI - General Chief Complaint: Dyspnea/Respdistress Stated Complaint: YEAST INFECTION Time Seen by Provider: 07/08/17 10:42 Source: patient, EMS Mode of arrival: Wheelchair Limitations: Physical Limitation, Other - History of Present Illness Initial Comments: Patient is a 21-year-old female with past medical history of CVA with some residual right-sided weakness and diabetes who is presenting with cough cold congestion for markedly 3 days. Patient states that she has had a productive cough clear sputum. Patient denies any nausea vomiting diarrhea chest pain. Patient does have mild shortness of breath with her cough. Patient also for the past 2 days this has some burning with urination and mild vaginal discharge. Patient states pain is a 8 out of 10 in severity. MD Complaint: shortness of breath, cough - Related Data Previous Rx's Medication Instructions Recorded Last Taken Type Amitriptyline [Elavil] 75 mg PO QHS 30 Days tablet 04/01/17 Unknown Rx Calcium Carbonate [Oyster Shell 500 mg PO QDAY #30 tablet 04/01/17 Unknown Rx Calcium] Carvedilol [Coreg] 6.25 mg PO BID #60 tablet 04/01/17 Unknown Rx Furosemide [Lasix TAB] 40 mg PO QDAY #30 tablet 04/01/17 Unknown Rx Losartan [Cozaar] 100 mg PO QDAY #30 tablet 04/01/17 Unknown Rx Spironolactone [Aldactone] 25 mg PO QDAY #30 tablet 04/01/17 Unknown Rx Naproxen 500 mg PO BID #6 tablet 06/13/17 Unknown Rx ALBUTEROL Inhaler [ProAir HFA 2 puff IH QID PRN #1 inhalation 07/08/17 Unknown Rx Inhaler] Azithromycin [Zithromax Z-ALBERTO] 250 mg PO DAILY #6 tablet 07/08/17 Unknown Rx Benzonatate [Tessalon Perle] 100 mg PO Q8HR #12 capsule 07/08/17 Unknown Rx Fluconazole [Diflucan TAB] 200 mg PO QDAY #2 tablet 07/08/17 Unknown Rx Allergies Allergy/AdvReac Type Severity Reaction Status Date / Time No Known Allergies Allergy Unverified 05/15/14 11:44 ED Review of Systems ROS: Stated complaint: YEAST INFECTION Other details as noted in HPI Comment: All other systems reviewed and negative ED Past Medical Hx - Past Medical History Previous Medical History?: Yes Hx Hypertension: Yes Hx CVA: Yes (RIGHT SIDED WEAKNESS) Hx Congestive Heart Failure: No Hx Diabetes: Yes Hx Arthritis: Yes Hx Asthma: No Hx COPD: Yes Additional medical history: USES A CANE - Surgical History Past Surgical History?: Yes Additional Surgical History: [facility]--1978; "throat surgery" - Social History Smoking Status: Former Smoker Substance Use Type: None - Medications Home Medications: Home Medications Medication Instructions Recorded Confirmed Last Taken Type Amitriptyline [Elavil] 75 mg PO QHS 30 Days tablet 04/01/17 Unknown Rx Calcium Carbonate [Oyster Shell 500 mg PO QDAY #30 tablet 04/01/17 Unknown Rx Calcium] Carvedilol [Coreg] 6.25 mg PO BID #60 tablet 04/01/17 Unknown Rx Furosemide [Lasix TAB] 40 mg PO QDAY #30 tablet 04/01/17 Unknown Rx Losartan [Cozaar] 100 mg PO QDAY #30 tablet 04/01/17 Unknown Rx Spironolactone [Aldactone] 25 mg PO QDAY #30 tablet 04/01/17 Unknown Rx Naproxen 500 mg PO BID #6 tablet 06/13/17 Unknown Rx ALBUTEROL Inhaler [ProAir HFA 2 puff IH QID PRN #1 inhalation 07/08/17 Unknown Rx Inhaler] Azithromycin [Zithromax Z-ALBERTO] 250 mg PO DAILY #6 tablet 07/08/17 Unknown Rx Benzonatate [Tessalon Perle] 100 mg PO Q8HR #12 capsule 07/08/17 Unknown Rx Fluconazole [Diflucan TAB] 200 mg PO QDAY #2 tablet 07/08/17 Unknown Rx ED Physical Exam - General Limitations: Physical Limitation, Other General appearance: alert, in no apparent distress - Head Head exam: Present: atraumatic, normocephalic - Eye Eye exam: Present: normal appearance - ENT ENT exam: Present: mucous membranes moist - Neck Neck exam: Present: normal inspection - Respiratory Respiratory exam: Present: normal lung sounds bilaterally. Absent: respiratory distress, wheezes, rales, rhonchi - Cardiovascular Cardiovascular Exam: Present: regular rate, normal rhythm. Absent: systolic murmur, diastolic murmur, rubs, gallop - GI/Abdominal GI/Abdominal exam: Present: soft, normal bowel sounds. Absent: distended, tenderness, guarding - External exam: Present: normal external exam - Extremities Exam Extremities exam: Present: normal inspection - Back Exam Back exam: Present: normal inspection - Neurological Exam Neurological exam: Present: alert, oriented X3 - Psychiatric Psychiatric exam: Present: normal affect, normal mood - Skin Skin exam: Present: warm, dry, intact, normal color. Absent: rash ED Course Vital Signs 07/07/17 07/07/17 07/08/17 21:20 21:23 10:12 Temperature 97.5 F L Pulse Rate 98 H 99 H Respiratory 20 20 Rate Blood Pressure 144/96 144/96 O2 Sat by Pulse 98 97 97 Oximetry 07/08/17 07/08/17 07/08/17 10:15 10:20 10:31 Temperature 97.8 F Pulse Rate 103 H 114 H Respiratory 26 H 27 H Rate Blood Pressure 136/92 136/92 O2 Sat by Pulse 98 97 Oximetry 07/08/17 07/08/17 07/08/17 10:45 11:00 11:15 Temperature Pulse Rate 101 H 103 H 104 H Respiratory 21 24 21 Rate Blood Pressure 136/92 135/93 135/93 O2 Sat by Pulse 99 97 99 Oximetry ED Medical Decision Making - Lab Data Result diagrams: 07/07/17 21:42 07/07/17 21:42 - EKG Data -: EKG Interpreted by Me - EKG Data Interpretation: other (EKG shows sinus tachycardia rate of 100 normal axis normal L [place] no ST segment changes there is a left bundle branch block present time of dictation 2320) - Radiology Data Radiology results: report reviewed Chest x-ray interpretation: Areas of chronic parenchymal scarring within the right middle and lower lobe distributions - Medical Decision Making She is a 61-year-old female who is presenting with cough cold congestion. Patient most likely has a acute bronchitis. Patient's O2 sat were within normal limits. Emergency department. He will be given meds for symptomatic relief. Patient also has dysuria there is no urinary tract infection seen on urinalysis. Patient most likely secondary to her diabetes has a mild yeast infection and this will be treated as well. Critical care attestation.: If time is entered above; I have spent that time in minutes in the direct care of this critically ill patient, excluding procedure time. ED Disposition Clinical Impression: Yeast infection Acute bronchitis Qualifiers: Bronchitis organism: unspecified organism Qualified Code(s): J20.9 - Acute bronchitis, unspecified Disposition: DC-01 TO HOME OR SELFCARE Is pt being admited?: No Does the pt Need Aspirin: No Condition: Stable Instructions: Acute Bronchitis (ED), Vulvovaginal Candidiasis (ED) Prescriptions: ALBUTEROL Inhaler [ProAir HFA Inhaler] 2 puff IH QID PRN #1 inhalation PRN Reason: Shortness Of Breath Azithromycin [Zithromax Z-ALBERTO] 250 mg PO DAILY #6 tablet Benzonatate [Tessalon Perle] 100 mg PO Q8HR #12 capsule Fluconazole [Diflucan TAB] 200 mg PO QDAY #2 tablet Referrals: GALINDO MASTERS MD [Primary Care Provider] - 3-5 Days
[2017-07-08 12:18] VITALS: BP 155/105
== END 2017-07-08 13:01 | disposition home or self-care (01) ==
LOC: ED 18:37
DX: B37.9 Candidiasis, unspecified (principal); J20.9 Acute bronchitis, unspecified; I10 Essential (primary) hypertension; E11.9 Type 2 diabetes mellitus without complications; M19.90 Unspecified osteoarthritis, unspecified site; J44.9 Chronic obstructive pulmonary disease, unspecified; Z86.73 Personal history of transient ischemic attack (TIA), and cerebral infarction without residual deficits; Z87.891 Personal history of nicotine dependence
CPT/HCPCS: 36415; 71046; 80048; 81001; 84484; 85025; 87086; 93005; 93010; 99285